=== PATIENT | male | born 1985 | race American Indian/Alaskan Native ===

== ENCOUNTER 2017-01-16 17:21 | Emergency (ER) | payer OTHER ==
[~2017-01-16] VITALS: Ht 167.6 cm; Wt 74.4 kg
[2017-01-16 19:10] VITALS: BP 154/90
[2017-01-16] MEDS ORDERED: IBUPROFEN600 MG ORAL (19:45)
[2017-01-16 20:05] VITALS: BP 154/90
--- NOTE | 2017-01-16 22:08 | Emergency Room Report ---
History of Present Illness General Chief Complaint: Laceration Source: Patient Present Illness HPI The patient is a 31-year-old male presenting for laceration to the left thumb which occurred yesterday at work. He states the knife slipped and cut the finger. He cleaned the area and applied an antibiotic ointment. He denies any pain. He denies numbness. Last tetanus shot was 3 years prior. He denies any other injury or symptoms Allergies: Coded Allergies: No Known Allergies (Unverified , 01/16/17) Patient History Past Medical History: see triage record Pertinent Family History: none Reviewed Nursing Documentation: PMH: Agreed, PSxH: Agreed Nursing Documentation-PMH Past Medical History: No Stated History Review of Systems All Other Systems: negative except mentioned in HPI Physical Exam Vital Signs Date Time Temp Pulse Resp B/P Pulse Ox O2 Delivery O2 Flow Rate FiO2 01/16/17 17:56 98.2 66 16 154/90 98 Room Air Sp02 EP Interpretation: reviewed, normal General Appearance: no apparent distress, alert, GCS 15, non-toxic Head: normocephalic, atraumatic Eyes: bilateral eye PERRL, bilateral eye normal inspection ENT: hearing grossly normal, normal pharynx, no angioedema, normal voice Musculoskeletal: normal range of motion, tender - TTP over the distal L thumb Neurologic: alert, oriented x3, responsive, motor strength/tone normal, sensory intact, speech normal Psychiatric: judgement/insight normal, memory normal, mood/affect normal, no suicidal/homicidal ideation Skin: normal turgor, laceration - skin avulsion and partial nail avulsion of L thumb Lymphatic: no adenopathy Medical Decision Making PA Attestation Dr. Mcelroy is my supervising physician. Patient management was discussed with my supervising physician Diagnostic Impression: Primary Impression: Laceration of hand, left Qualified Codes: S61.412A - Laceration without foreign body of left hand, initial encounter ER Course The patient is a 31-year-old male presenting for left thumb laceration Ddx considered include but not limited to fracture, tendon/ligament injury, avulsion, nerve damage Physical exam reveals a skin avulsion and partial nail avulsion of the distal left thumb. No active bleeding. Full active range of motion. The area is cleaned with normal saline and Betadine. Sterile dressing is applied with Xeroform. ER precautions given Last Vital Signs Date Time Temp Pulse Resp B/P Pulse Ox O2 Delivery O2 Flow Rate FiO2 01/16/17 17:56 98.2 66 16 154/90 98 Room Air Status: improved Disposition: HOME, SELF-CARE Condition: Improved Scripts Ibuprofen* (MOTRIN*) 600 Mg Tablet 600 MG ORAL Q8H Y for For Pain, #30 TAB 0 Refills Prov: [place] CHAN 01/16/17 Patient Instructions: Nonsutured Laceration Care Additional Instructions: I discussed my findings with the patient. All questions and concerns have been answered. Treatment and medication compliance have been addressed. I advised the patient that they need to follow up with PMD in 3-5 days. Return to ED if symptoms worsen, new symptoms arise, or if needed for any reason. Patient verbalized understanding of discharge instructions. Please keep the wound clean and dry and followup with primary doctor. Return to emergency Department if you notice symptoms such as increased redness , fever, bleeding, fever, or discharge from the wound [place] CHAN Jan 16, 2017 22:08
== END 2017-01-16 20:05 | disposition home or self-care (01) ==
LOC: EMR 20:05
DX: S61.412A Laceration without foreign body of left hand, initial encounter (principal); W26.0XXA Contact with knife, initial encounter; Y93.G1 Activity, food preparation and clean up; Y92.59 Other trade areas as the place of occurrence of the external cause; Y99.0 Civilian activity done for income or pay
CPT/HCPCS: 99283